=== PATIENT | male | born 1960 | race Caucasian/White ===

== ENCOUNTER → 2024-01-02 09:26 | Outpatient (REF) | payer OTHER, SELFPAY | LOC: RCS 09:26 | PROVIDERS: ATTENDING PHYSICIAN Internal Medicine Cardiovascular Disease; FAMILY PHYSICIAN Family Medicine | DX: R06.02 Shortness of breath (principal) | CPT/HCPCS: 93306; Q9950 ==

== ENCOUNTER 2024-02-29 14:23 | Outpatient (RCR) | payer OTHER, SELFPAY ==
[2024-02-11 11:01] LABS: Glucose - Point of Care 350 mg/dl (70-99)
[2024-02-13 13:12] LABS: Glucose - Point of Care 210 mg/dl (70-99)
[2024-02-13 14:30] LABS: Glucose - Point of Care 219 mg/dl (70-99)
[2024-02-18 13:07] LABS: Glucose - Point of Care 157 mg/dl (70-99)
[2024-02-18 13:56] LABS: Glucose - Point of Care 172 mg/dl (70-99)
[2024-02-20 13:06] LABS: Glucose - Point of Care 212 mg/dl (70-99)
[2024-02-20 13:58] LABS: Glucose - Point of Care 231 mg/dl (70-99)
[2024-02-25 13:08] LABS: Glucose - Point of Care 199 mg/dl (70-99)
[2024-02-25 14:01] LABS: Glucose - Point of Care 213 mg/dl (70-99)
[2024-02-27 13:04] LABS: Glucose - Point of Care 162 mg/dl (70-99)
[2024-02-27 14:00] LABS: Glucose - Point of Care 179 mg/dl (70-99)
[2024-02-29 13:08] LABS: Glucose - Point of Care 194 mg/dl (70-99)
[2024-02-29 14:06] LABS: Glucose - Point of Care 181 mg/dl (70-99)
== END 2024-02-29 23:59 | disposition home or self-care (01) ==
LOC: CRHB 14:23
PROVIDERS: ATTENDING PHYSICIAN Internal Medicine Cardiovascular Disease
DX: I25.118 Atherosclerotic heart disease of native coronary artery with other forms of angina pectoris (principal)
CPT/HCPCS: 82962; G0422; G0423

== ENCOUNTER 2024-03-12 14:15 | Outpatient (RCR) | payer OTHER, SELFPAY | END 2024-03-12 23:59 | disposition home or self-care (01) | LOC: CRHB 14:15 | PROVIDERS: ATTENDING PHYSICIAN Internal Medicine Cardiovascular Disease; FAMILY PHYSICIAN Family Medicine | DX: I25.118 Atherosclerotic heart disease of native coronary artery with other forms of angina pectoris (principal) | CPT/HCPCS: G0422 ==